=== PATIENT | male | born 1965 | race Caucasian/White ===

== ENCOUNTER → 2017-04-30 | Outpatient (CLI) | payer OTHER ==
[~2017-04-30] MED LIST: AMOXICILLIN500 MG PO; ATORVASTATIN CA20 M1 PO; BIPOLAR MED PO; FLEXERIL10 MG PO; FLEXERIL5 MG PO; GABAPENTIN100 MG PO; GABAPENTIN800 MG PO; HUMALOG100 U/ML SC; KEFLEX500 MG PO; LANTUS100 U/ML SC; LATU120T PO; LATU80TA PO; LOMOTIL 0.025 M1 TA1 PO; LOSARTAN POTASS25 M1 PO; MEDROL DOSEPAK4 MG PO; NAPROSYN500 MG PO; NEURONTIN100 MG PO; NEURONTIN800 MG PO; NORCO 325 MG-101 TAB PO; NORCO 325 MG-51 TAB PO; NORCO 5-325 TA1 EACH PO; PARAFON FORTE500 MG PO; PROZAC PO; RUFEN800 MG PO; SNAP INSULIN P1 EACH MC; TRAZODONE HCL150 MG PO; TRAZODONE PO; TRAZODONE150 MG PO; TRINTELLIX20 MG PO; VICO10300 PO; VITAMIN D5000 I3 PO; WELLBUTRIN PO; WELLBUTRIN SR150 MG PO; WELLBUTRIN SR200 MG PO
[2017-04-30 09:37] LABS: BILIRUBIN NEGATIVE (NEGATIVE); BLOOD NEGATIVE (NEGATIVE); CLARITY CLEAR (CLEAR); COLOR YELLOW (YELLOW); GLUCOSE NEGATIVE (NEGATIVE); KETONE NEGATIVE (NEGATIVE); LEUKO ESTERASE NEGATIVE (NEGATIVE); NITRITE NEGATIVE (NEGATIVE); PROTEIN NEGATIVE (NEGATIVE); UROBILINOGEN 0.2 E.U./dl (0.2-1.0)
[2017-04-30 09:54] LABS: BACTERIA TRACE; MUCOUS 1+; WBC 0-2 wbc/hpf (0-5)
[2017-04-30 09:59] LABS: HEMOGLOBIN A1c 6.6 % (4.8-5.6)
[2017-04-30 10:07] LABS: ALBUMIN 3.7 gm/dl (3.1-4.5); ALKALINE PHOSPHATASE 75 U/L (45-117); BILIRUBIN, DIRECT 0.2 mg/dL (0.0-0.2); BILIRUBIN, TOTAL 0.7 mg/dl (0.2-1.0); BUN 20 mg/dl (7-24); CARBON DIOXIDE 24 mmol/L (21-32); CHLORIDE 108 mmol/L (98-107); EST GLOM FILT AFRICAN AMERICAN > 60 ml/min; GLUCOSE 180 mg/dL (65-99); POTASSIUM 4.3 mmol/L (3.5-5.1); SGOT/AST 15 IU/L (3-35); SGPT/ALT 26 U/L (12-78); SODIUM 143 mmol/L (136-145); TOTAL PROTEIN 7.3 gm/dL (6.4-8.2)
[2017-04-30 10:47] LABS: VITAMIN D, 25-HYDROXY 62.1 ng/mL (30-100)
== END | disposition home or self-care (01) ==
LOC: LAB 09:16
PROVIDERS: Internal Medicine
DX: E10.65 Type 1 diabetes mellitus with hyperglycemia (principal); E55.9 Vitamin D deficiency, unspecified; E78.5 Hyperlipidemia, unspecified

== ENCOUNTER → 2017-08-19 | Outpatient (CLI) | payer OTHER ==
[~2017-08-19] MED LIST changes: +REXULTI1 MG PO; +ZOLPIDEM TART12.5 MG PO
== END | disposition home or self-care (01) ==
LOC: WOUNDCARE 03:55
DX: L02.11 Cutaneous abscess of neck (principal); L72.3 Sebaceous cyst; F32.9 Major depressive disorder, single episode, unspecified; E10.9 Type 1 diabetes mellitus without complications

== ENCOUNTER → 2017-08-23 | Day surgery (SDC) | payer OTHER ==
--- NOTE | ~2017-08-23 | PROC NOTE ---
[place], [place] PROCEDURE NOTE NAME: DOROTHY TIM [facility] #: [id number] UNIT #: [id number] ROOM: DOCTOR: BARON ESPINO MD BIRTHDATE: [birth year] DOS: 08/23/2017 PREOPERATIVE DIAGNOSIS: Posterior neck sebaceous cyst. POSTOPERATIVE DIAGNOSIS: Posterior neck sebaceous cyst. PROCEDURE: Excision of posterior neck sebaceous cyst. SURGEON: Baron Espino MD [employer] ATTENDANT: JANELLE. ANESTHESIA: Local (1% plain lidocaine). INDICATIONS: This is a 52-year-old gentleman with a history of diabetes and a posterior neck sebaceous cyst, which was treated for infection recently. He is here for the above-mentioned procedure. The procedure and its complications explained to the patient in detail preoperatively. Complications that were discussed included but were not limited to bleeding, infection, recurrence, prolonged postoperative pain. He agreed to proceed. DESCRIPTION OF PROCEDURE: After identifying the patient, the patient was brought to the operating suite and laid in the right lateral position. After time-out procedure was called, the parts were painted and draped in the usual sterile fashion. An elliptical incision was marked and 1% plain lidocaine was injected for local anesthesia. Incision was made and the cyst was incised in its entirety and sent for histopathological diagnosis. Hemostasis was achieved with the help of electrocautery. Saline was used for irrigation. Thereafter, the edges of the skin were approximated with the help of 3-0 nylon in an interrupted fashion and dressing was placed. The patient tolerated the procedure well and was taken to the recovery room in stable fashion. There were no complications. Dr. Baron Espino, the attending surgeon, was present throughout the operating case. Baron Espino MD CM:PROCNOTE:PROCEDURE NOTE 0 9 BARON ESPINO MD
[2017-08-23 07:00] VITALS: BP 128/75
[2017-08-23 07:38] VITALS: BP 102/60
[2017-08-23 07:51] VITALS: BP 105/62
[2017-08-23 07:58] VITALS: BP 108/60
[2017-08-23 08:05] VITALS: BP 100/52
== END | disposition home or self-care (01) ==
LOC: SDC 08-22 11:00
DX: L72.0 Epidermal cyst (principal); F41.9 Anxiety disorder, unspecified; E11.9 Type 2 diabetes mellitus without complications; F32.9 Major depressive disorder, single episode, unspecified; Z98.890 Other specified postprocedural states; Z88.8 Allergy status to other drugs, medicaments and biological substances

== ENCOUNTER → 2017-09-12 | Outpatient (CLI) | payer OTHER ==
[2017-09-12 09:27] LABS: BILIRUBIN NEGATIVE (NEGATIVE); BLOOD NEGATIVE (NEGATIVE); CLARITY CLEAR (CLEAR); COLOR YELLOW (YELLOW); GLUCOSE 1+ (NEGATIVE); KETONE NEGATIVE (NEGATIVE); LEUKO ESTERASE NEGATIVE (NEGATIVE); NITRITE NEGATIVE (NEGATIVE); PH 5.5 (5.0-9.0); SPECIFIC GRAVITY 1.025 (1.005-1.030); UROBILINOGEN 0.2 E.U./dl (0.2-1.0)
[2017-09-12 09:36] LABS: BACTERIA TRACE; MUCOUS 3+
[2017-09-12 10:06] LABS: ALBUMIN 3.6 gm/dl (3.1-4.5); ALKALINE PHOSPHATASE 111 U/L (45-117); BILIRUBIN, DIRECT 0.1 mg/dL (0.0-0.2); BUN 17 mg/dl (7-24); CHLORIDE 108 mmol/L (98-107); CREATININE 1.23 mg/dL (0.70-1.30); FREE T4 1.19 ng/dl (0.76-1.46); POTASSIUM 3.6 mmol/L (3.5-5.1); SGOT/AST 16 IU/L (3-35); SGPT/ALT 49 U/L (12-78); SODIUM 140 mmol/L (136-145); TOTAL PROTEIN 7.6 gm/dL (6.4-8.2)
[2017-09-12 10:13] LABS: THYROID STIM HORMONE (HS) 0.697 uIU/ml (0.358-4.75)
[2017-09-13 07:07] LABS: LUTEINIZING HORMONE 004283 3.5 mIU/mL (1.7-8.6); PROLACTIN 004465 15.1 ng/mL (4.0-15.2)
== END | disposition home or self-care (01) ==
LOC: LAB 09:02
PROVIDERS: Internal Medicine
DX: E11.40 Type 2 diabetes mellitus with diabetic neuropathy, unspecified (principal); E55.9 Vitamin D deficiency, unspecified; E03.9 Hypothyroidism, unspecified; E29.1 Testicular hypofunction; N40.0 Benign prostatic hyperplasia without lower urinary tract symptoms; E11.65 Type 2 diabetes mellitus with hyperglycemia

== ENCOUNTER → 2017-12-06 | Outpatient (CLI) | payer OTHER | END | disposition home or self-care (01) | LOC: MRI 11:14 | DX: M54.14 Radiculopathy, thoracic region (principal); M51.24 Other intervertebral disc displacement, thoracic region ==

== ENCOUNTER → 2018-01-08 | Outpatient (CLI) | payer OTHER ==
[2018-01-08 09:18] LABS: BILIRUBIN NEGATIVE (NEGATIVE); BLOOD NEGATIVE (NEGATIVE); CLARITY CLEAR (CLEAR); COLOR YELLOW (YELLOW); GLUCOSE TRACE (NEGATIVE); KETONE NEGATIVE (NEGATIVE); LEUKO ESTERASE NEGATIVE (NEGATIVE); NITRITE NEGATIVE (NEGATIVE); UROBILINOGEN 0.2 E.U./dl (0.2-1.0)
[2018-01-08 09:57] LABS: ALBUMIN 3.7 gm/dl (3.1-4.5); ALKALINE PHOSPHATASE 109 U/L (45-117); BILIRUBIN, DIRECT < 0.1 mg/dL (0.0-0.2); BUN 14 mg/dl (7-24); CHLORIDE 107 mmol/L (98-107); CHOLESTEROL 125 mg/dL (<200); CREATININE 1.19 mg/dL (0.70-1.30); FREE T4 1.06 ng/dl (0.76-1.46); HDL CHOLESTEROL 42 mg/dl (40-60); LDL CHOLESTEROL 72 mg/dL (9-159); POTASSIUM 3.8 mmol/L (3.5-5.1); SGPT/ALT 29 U/L (12-78); SODIUM 142 mmol/L (136-145); TOTAL PROTEIN 7.5 gm/dL (6.4-8.2); TRIGLYCERIDES 55 mg/dl (<150); VLDL CHOLESTEROL 11 mg/dL (6-40)
[2018-01-08 10:03] LABS: SGOT/AST 19 IU/L (3-35); THYROID STIM HORMONE (HS) 0.507 uIU/ml (0.358-4.75)
== END | disposition home or self-care (01) ==
LOC: LAB 09:00
PROVIDERS: Internal Medicine
DX: E10.65 Type 1 diabetes mellitus with hyperglycemia (principal); E55.9 Vitamin D deficiency, unspecified; E03.9 Hypothyroidism, unspecified; E78.5 Hyperlipidemia, unspecified; E34.9 Endocrine disorder, unspecified; E29.1 Testicular hypofunction